=== PATIENT | male | born 1990 | race Hispanic/Latino ===

== ENCOUNTER 2018-03-06 12:18 | Emergency (ER) | payer OTHER ==
[2018-03-06] MEDS ORDERED: XYLOCAINE 1% 20 mL INFILTRATI ONE (13:27)
[2018-03-06] MEDS ORDERED: NACL 0.9% IR ONE (13:27)
[2018-03-06] MEDS ORDERED: NACL 0.9% 1000 ML 1,000 ML IV ONE (13:28)
--- NOTE | 2018-03-06 13:29 | Emergency Department Report ---
ED General Adult HPI - General Chief complaint: Syncope Stated complaint: LACERATION OVER LEFT EYE/SYNCOPE Time Seen by Provider: 03/06/18 13:16 Source: patient, EMS (ems notes not available at time of chart dictation), RN notes reviewed Mode of arrival: Stretcher Limitations: No Limitations - History of Present Illness Initial comments: This is a 28-year-old male who is unknown to this provider previously, [place] Presents to the ER with complaint of unprovoked syncope. Patient reports that he was lifting and working out in the extreme heat, and didn't drink much water yesterday or today. He reports that he had a sudden loss of consciousness. Prior to the event, he had no headache, neck pain, chest pain, abdominal pain, shortness of breath. The patient denies midline neck pain, and he denies DVT, pulmonary embolus risk factors. After the event, he reports a left eyebrow laceration. He thinks he is up-to-date with tetanus vaccination. -: Sudden Location: face Radiation: non-radiation Quality: aching Consistency: constant Improves with: rest Worsens with: movement Associated Symptoms: diaphoresis, headaches, syncope. denies: confusion, chest pain, cough, fever/chills, loss of appetite, malaise, rash, seizure, shortness of breath, weakness - Related Data Previous Rx's Medication Instructions Recorded Last Taken Type Acetaminophen [Tylenol Arthritis] 650 mg PO Q6HR PRN #30 tablet.er 03/06/18 Unknown Rx Bacitracin Zinc Oint [Antibiotic 1 applicatio TP BID #1 tube 03/06/18 Unknown Rx Oint] Fluticasone [Flonase] 1 spray NS QDAY #1 bottle 03/06/18 Unknown Rx Ibuprofen [Motrin] 600 mg PO Q8H PRN #30 tablet 03/06/18 Unknown Rx Oxymetazoline 0.05% [Afrin] 1 spray NS BID #1 bottle 03/06/18 Unknown Rx Allergies Allergy/AdvReac Type Severity Reaction Status Date / Time No Known Allergies Allergy Verified 03/06/18 15:15 ED Review of Systems ROS: Stated complaint: LACERATION OVER LEFT EYE/SYNCOPE Other details as noted in HPI Constitutional: denies: fever Eyes: denies: eye pain ENT: denies: throat pain Respiratory: denies: cough Cardiovascular: syncope. denies: chest pain Gastrointestinal: nausea. denies: abdominal pain Genitourinary: denies: dysuria Musculoskeletal: denies: back pain Skin: denies: lesions Neurological: headache. denies: weakness ED Past Medical Hx - Past Medical History Previous Medical History?: No - Surgical History Past Surgical History?: No - Social History Smoking Status: Current Every Day Smoker Substance Use Type: None - Medications Home Medications: Home Medications Medication Instructions Recorded Confirmed Last Taken Type Acetaminophen [Tylenol Arthritis] 650 mg PO Q6HR PRN #30 tablet.er 03/06/18 Unknown Rx Bacitracin Zinc Oint [Antibiotic 1 applicatio TP BID #1 tube 03/06/18 Unknown Rx Oint] Fluticasone [Flonase] 1 spray NS QDAY #1 bottle 03/06/18 Unknown Rx Ibuprofen [Motrin] 600 mg PO Q8H PRN #30 tablet 03/06/18 Unknown Rx Oxymetazoline 0.05% [Afrin] 1 spray NS BID #1 bottle 03/06/18 Unknown Rx ED Physical Exam - General Limitations: No Limitations General appearance: alert, in no apparent distress - Head Head exam: Present: normocephalic, other (there is a left-sided supraorbital, medial skin laceration, 1.3 cm.) - Eye Eye exam: Present: normal appearance, PERRL, EOMI, other (visual acuity intact to finger counting, color perception, reading at a close distance). Absent: nystagmus - ENT ENT exam: Present: normal exam, normal orophraynx, mucous membranes moist, TM's normal bilaterally, normal external ear exam, other (there is no nasal septal hematoma. There is a negative hemotympanum) - Neck Neck exam: Present: normal inspection, full ROM. Absent: tenderness, meningismus - Respiratory Respiratory exam: Present: normal lung sounds bilaterally. Absent: respiratory distress - Cardiovascular Cardiovascular Exam: Present: normal rhythm, bradycardia, normal heart sounds. Absent: systolic murmur, diastolic murmur, rubs, gallop - GI/Abdominal GI/Abdominal exam: Present: soft, normal bowel sounds. Absent: distended, tenderness, guarding, rebound, rigid, pulsatile mass - Rectal Rectal exam: Present: deferred - Extremities Exam Extremities exam: Present: normal inspection, full ROM, normal capillary refill , other (there is no palpable cord. There is a negative Homans sign. Compartments are soft. 2+ pulses noted in the bilateral upper, lower extremity) . Absent: pedal edema, joint swelling, calf tenderness - Back Exam Back exam: Present: normal inspection, full ROM. Absent: tenderness, CVA tenderness (R), paraspinal tenderness, vertebral tenderness - Neurological Exam Neurological exam: Present: alert, oriented X3, CN II-XII intact, normal gait, other (Extraocular movements intact. Tongue midline. No facial droop. Facial sensation intact to light touch in the V1, V2, V3 distribution bilaterally. 5 and 5 strength in 4 extremities.. Sensation is intact to light touch in 4 extremities.). Absent: motor sensory deficit - Psychiatric Psychiatric exam: Present: normal affect, normal mood - Skin Skin exam: Present: warm, other (supraorbital laceration) ED Course Vital Signs 03/06/18 03/06/18 12:44 15:20 Temperature 96.6 F L Pulse Rate 51 L 44 L Respiratory 18 18 Rate Blood Pressure 118/65 Blood Pressure 123/57 [Right] O2 Sat by Pulse 99 100 Oximetry - Reevaluation(s) Reevaluation #1: 03/06/18 16:09 CT scan of the face shows bilateral nasal bone fractures. Otherwise no acute disease. - Laceration /Wound Repair Right Upper Medial Eye Wound Location: face Wound Length (cm): 1 Wound's Depth, Shape: into muscle, linear, contused tissue Wound Explored: no foreign body removed Irrigated w/ Saline (ccs): 250 Betadine Prep?: Yes Anesthesia: 1% Lidocaine Volume Anesthetic (ccs): 5 Wound Debrided: minimal Suture Size/Type: 5:0 (monofilament) Number of Sutures: 5 Layer Closure?: No Sterile Dressing Applied?: Yes ED Medical Decision Making - Lab Data Result diagrams: 03/06/18 13:52 03/06/18 13:52 Vital Signs 03/06/18 12:44 Temperature 96.6 F L Pulse Rate 51 L Respiratory 18 Rate Blood Pressure 118/65 O2 Sat by Pulse 99 Oximetry Lab Results 03/06/18 03/06/18 03/06/18 Range/Units 13:52 13:52 13:52 WBC 11.1 H (4.5-11.0) K/mm3 RBC 4.02 (3.65-5.03) M/mm3 Hgb 13.2 (11.8-15.2) gm/dl Hct 38.8 (35.5-45.6) % MCV 97 H (84-94) fl MCH 33 H (28-32) pg MCHC 34 (32-34) % RDW 13.0 L (13.2-15.2) % Plt Count 205 (140-440) K/mm3 PT 13.9 (12.2-14.9) Sec. INR 1.02 (0.87-1.13) Sodium 142 (137-145) mmol/L Potassium 4.1 (3.6-5.0) mmol/L Chloride 105.7 (98-107) mmol/L Carbon Dioxide 26 (22-30) mmol/L Anion Gap 14 mmol/L BUN 13 (9-20) mg/dL Creatinine 0.7 L (0.8-1.5) mg/dL Estimated GFR > 60 ml/min BUN/Creatinine Ratio 19 % Glucose 107 H (75-100) mg/dL Calcium 9.0 (8.4-10.2) mg/dL Magnesium 2.00 (1.7-2.3) mg/dL TSH (0.270-4.200) mlU/mL 03/06/18 Range/Units 13:52 WBC (4.5-11.0) K/mm3 RBC (3.65-5.03) M/mm3 Hgb (11.8-15.2) gm/dl Hct (35.5-45.6) % MCV (84-94) fl MCH (28-32) pg MCHC (32-34) % RDW (13.2-15.2) % Plt Count (140-440) K/mm3 PT (12.2-14.9) Sec. INR (0.87-1.13) Sodium (137-145) mmol/L Potassium (3.6-5.0) mmol/L Chloride (98-107) mmol/L Carbon Dioxide (22-30) mmol/L Anion Gap mmol/L BUN (9-20) mg/dL Creatinine (0.8-1.5) mg/dL Estimated GFR ml/min BUN/Creatinine Ratio % Glucose (75-100) mg/dL Calcium (8.4-10.2) mg/dL Magnesium (1.7-2.3) mg/dL TSH 0.849 (0.270-4.200) mlU/mL - EKG Data -: EKG Interpreted by Me EKG shows normal: sinus rhythm, axis, intervals, QRS complexes, ST-T waves Rate: bradycardia - EKG Data When compared to previous EKG there are: previous EKG unavailable 03/06/18 15:10 Sinus bradycardia, 47 beats per minute, normal intervals, normal axis, not a STEMI - Radiology Data Radiology results: report reviewed, image reviewed Noncontrast CT scan of the brain is negative. Noncontrast CT scan of the facial bones: - Medical Decision Making Differential diagnosis, including but not limited to: Orthostasis, vagal event, electrolyte derangement, intracranial injury, facial injury, supraorbital laceration Heat stroke Assessment and plan: 28-year-old male, in good cardiovascular health, with no pulmonary embolus or DVT risk factors is low risk by well's criteria, who is perc negative, with syncope while working in the heat in the context of poor water intake. Etiology of syncope most likely benign. Laboratory studies were unremarkable, physical exam was unremarkable, GCS of 15, NIH score of 0,Patient is clinically sober at this time. The cervical spine is cleared through nexus and micronesian c spine rule Patient was observed in the ER for hours without clinical decompensation, a noncontrast CT scan of the brain and facial bones were negative for acute traumatic disease, is left-sided supraorbital laceration was repaired with good cosmetic approximation, and he remained neurologically intact. He will be discharged with instructions to follow up with outpatient cardiology for clearance to return to operating motor vehicles, and he can follow-up in 3-5 days to have the stitches taken out. Critical care attestation.: If time is entered above; I have spent that time in minutes in the direct care of this critically ill patient, excluding procedure time. ED Disposition Clinical Impression: Syncope, Facial laceration Disposition: -01 TO HOME OR SELFCARE Is pt being admited?: No Does the pt Need Aspirin: No Condition: Stable Instructions: Suture Care (ED), Laceration (ED), Syncope (ED) Additional Instructions: Take pain medication as needed/directed. Wash laceration with gentle soap and water every 12 hours. Apply bacitracin as directed, taking care to avoid exposure to the eye. Laceration site should be inspected by a medical professional in 2 days; patient may follow-up with the primary care doctor, urgent care center, or return to the ER in 2 days for repeat wound examination. Sutures should be taken out in 5 days. Patient should not drive or operate motor vehicles for the next 6 months. 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 Return to the ER right away with new pain, worsened pain, migration of pain, fevers, chills, lethargy, irritability, projectile vomiting, change in mental status, confusion, inability to tolerate liquid feeds. CT scan of the facial bones demonstrated nasal bone fractures. Avoid contact sports, blowing the nose. Use nasal spray as directed. Follow up with listed otolaryngology specialist or plastic surgeon within the next 10 days for nasal bone fracture. The plastic surgeon is Dr. Marie The otolaryngology specialist is Dr. Nikita Abel Prescriptions: Acetaminophen [Tylenol Arthritis] 650 mg PO Q6HR PRN #30 tablet.er PRN Reason: Pain Bacitracin Zinc Oint [Antibiotic Oint] 1 applicatio TP BID #1 tube Ibuprofen [Motrin] 600 mg PO Q8H PRN #30 tablet PRN Reason: Pain Referrals: [facility] [Provider Group] - 3-5 Days [facility] [Provider Group] - 3-5 Days [facility] [Provider Group] - 3-5 Days [facility], [Primary Care Provider] - 3-5 Days VICKI FLORES MD [Staff Physician] - 3-5 Days MARANDA MARIE MD [Staff Physician] - 3-5 Days
[2018-03-06 14:20] LABS: Hematocrit 38.8 % (35.5-45.6); Hemoglobin 13.2 gm/dl (11.8-15.2); Mean Corpuscular HGB Conc 34 % (32-34); Mean Corpuscular Hemoglobin 33 pg (28-32); Mean Corpuscular Volume 97 fl (84-94); Platelet Count 205 K/mm3 (140-440); Red Blood Count 4.02 M/mm3 (3.65-5.03)
[2018-03-06 14:30] LABS: INR 1.02 (0.87-1.13)
[2018-03-06 14:38] LABS: BUN/Creatinine Ratio 19; Blood Urea Nitrogen 13 mg/dL (9-20); Hemolysis Index 4
--- NOTE | 2018-03-06 14:45 | Cat Scan Report ---
CT HEAD WITHOUT CONTRAST: HISTORY: syncope, head trauma. TECHNIQUE: Sequential 2.5mm CT images. COMPARISON: none. FINDINGS: Cerebral Parenchyma: Within normal limits. Cerebellum: Within normal limits. Brainstem: Within normal limits. Ventricles: Normal. Sella: Normal. Extra-axial spaces: Normal. Basal Cisterns: Normal. Intracranial Hemorrhage: None. Midline Shift: None. Calvarium: Normal. Sinuses: Normal. Mastoid Air Cells: Normal. Visualized Orbits: Normal. IMPRESSION: Cranial CT scan within normal limits.
[2018-03-06] MEDS ORDERED: ANTIBIOTIC OINT TP STA (15:09)
[2018-03-06 15:21] VITALS: BP 123/57
--- NOTE | 2018-03-06 15:32 | Cat Scan Report ---
CT FACIAL BONES WITHOUT CONTRAST: HISTORY: Syncope, head trauma. TECHNIQUE: Helical CT images with sagittal and coronal CT reformations. FINDINGS: Bilateral nasal bone fractures are identified. There also appears to be a minimally displaced septal fracture. All paranasal sinuses are clear. No sinus wall fracture, fluid level or opacification. The orbital cavities are symmetric and intact. The mandible is intact. The skull base and upper cervical spine demonstrate no evidence for acute injury. IMPRESSION: Bilateral nasal bone fractures. Probable septal fracture.
== END 2018-03-06 16:26 | disposition home or self-care (01) ==
LOC: ED 12:18
DX: S01.81XA Laceration without foreign body of other part of head, initial encounter (principal); R55 Syncope and collapse; F17.200 Nicotine dependence, unspecified, uncomplicated; W18.30XA Fall on same level, unspecified, initial encounter; Y93.89 Activity, other specified; Y99.0 Civilian activity done for income or pay; Y92.520 Airport as the place of occurrence of the external cause
CPT/HCPCS: 12011; 36415; 70450; 70486; 80048; 83735; 84443; 85027; 85610; 93005; 93010; 96360; 99285; J7030